=== PATIENT | female | born 1970 | race Hispanic/Latino ===

== ENCOUNTER 2018-03-10 22:03 | Inpatient (IN) | payer SELFPAY ==
[2018-03-10] MEDS ORDERED: NACL 0.9% 1000 ML 1,000 ML IV ONE (22:28)
[2018-03-10] MEDS ORDERED: ZOFRAN IV ONE (22:28)
[2018-03-10] MEDS ORDERED: DILAUDID IV ONE (22:28)
--- NOTE | 2018-03-10 22:30 | Emergency Department Report ---
ED Abdominal Pain HPI - General Chief Complaint: Abdominal Pain Stated Complaint: STOMACH ULCER PAIN Time Seen by Provider: 03/10/18 22:24 Source: patient, EMS Mode of arrival: Wheelchair Limitations: No Limitations - History of Present Illness Initial Comments: Patient is a 47-year-old female presents emergency room with complaints of abdominal pain, nausea vomiting, hematemesis. Patient states her symptoms all started 2-3 days ago. Patient states symptoms are worsening. Patient states she is vomiting bright red blood. Patient states abdominal pain is in the epigastric region and is nonradiating and is out of 10. He states the pain is better with rest and worse with vomiting and eating. She denies fever and chills. Patient denies chest pain shortness of breath. MD Complaint: abdominal pain -: Sudden Location: epigastric Radiation: none Migration to: no migration Severity: severe Severity scale (0 -10): 10 Quality: stabbing, burning Consistency: constant Improves With: rest Worsens With: eating, vomiting, movement Associated Symptoms: nausea, vomiting, hematemesis. denies: diarrhea, fever, chills, constipation, dysuria, hematochezia, melena, hematuria, anorexia, syncope - Related Data LMP (females 10-50): this week Home Medications Medication Instructions Recorded Confirmed Last Taken No Known Home Medications [No 03/11/18 03/11/18 Unknown Reported Home Medications] Allergies Allergy/AdvReac Type Severity Reaction Status Date / Time No Known Allergies Allergy Verified 03/10/18 22:14 ED Review of Systems ROS: Stated complaint: STOMACH ULCER PAIN Other details as noted in HPI Constitutional: denies: chills, fever Eyes: denies: eye pain, eye discharge, vision change ENT: denies: ear pain, throat pain Respiratory: denies: cough, shortness of breath, wheezing Cardiovascular: denies: chest pain, palpitations Endocrine: no symptoms reported Gastrointestinal: abdominal pain, nausea, vomiting, hematemesis. denies: diarrhea, constipation, melena, hematochezia Genitourinary: denies: urgency, dysuria, discharge Musculoskeletal: denies: back pain, joint swelling, arthralgia Skin: denies: rash, lesions Neurological: denies: headache, weakness, paresthesias Psychiatric: denies: anxiety, depression Hematological/Lymphatic: denies: easy bleeding, easy bruising ED Past Medical Hx - Past Medical History Previous Medical History?: Yes Additional medical history: ulcers - Surgical History Past Surgical History?: No - Family History Family history: no significant - Social History Smoking Status: Current Every Day Smoker Substance Use Type: None - Medications Home Medications: Home Medications Medication Instructions Recorded Confirmed Last Taken Type No Known Home Medications [No 03/11/18 03/11/18 Unknown History Reported Home Medications] ED Physical Exam - General Limitations: No Limitations General appearance: alert, in no apparent distress - Head Head exam: Present: atraumatic, normocephalic - Eye Eye exam: Present: normal appearance - ENT ENT exam: Present: mucous membranes moist - Neck Neck exam: Present: normal inspection - Respiratory Respiratory exam: Present: normal lung sounds bilaterally. Absent: respiratory distress - Cardiovascular Cardiovascular Exam: Present: regular rate, normal rhythm. Absent: systolic murmur, diastolic murmur, rubs, gallop - GI/Abdominal GI/Abdominal exam: Present: soft, tenderness (epigastric tenderness to palpation), normal bowel sounds - Extremities Exam Extremities exam: Present: normal inspection - Back Exam Back exam: Present: normal inspection - Neurological Exam Neurological exam: Present: alert, oriented X3 - Psychiatric Psychiatric exam: Present: normal affect, normal mood - Skin Skin exam: Present: warm, dry, intact, normal color. Absent: rash ED Course Vital Signs 03/10/18 03/10/18 03/10/18 22:14 23:44 23:45 Temperature 98.7 F Pulse Rate 130 H 113 H 113 H Respiratory 16 16 19 Rate Blood Pressure 110/77 171/112 O2 Sat by Pulse 100 100 99 Oximetry 03/11/18 03/11/18 03/11/18 00:00 00:16 00:30 Temperature Pulse Rate 108 H 113 H 118 H Respiratory 17 18 19 Rate Blood Pressure 171/112 171/115 O2 Sat by Pulse 100 99 99 Oximetry 03/11/18 03/11/18 03/11/18 00:46 01:00 01:16 Temperature Pulse Rate 114 H 117 H 114 H Respiratory 18 21 19 Rate Blood Pressure 171/115 170/102 170/102 O2 Sat by Pulse 99 98 99 Oximetry 03/11/18 03/11/18 03/11/18 01:46 02:16 02:38 Temperature Pulse Rate 117 H 109 H 108 H Respiratory 15 16 17 Rate Blood Pressure 170/102 140/97 160/99 O2 Sat by Pulse 96 98 Oximetry 03/11/18 03/11/18 05:16 05:30 Temperature Pulse Rate 113 H Respiratory 24 Rate Blood Pressure 168/102 152/102 O2 Sat by Pulse 97 94 Oximetry - Reevaluation(s) Reevaluation #1: Patient resting in bed and complaining of abdominal pain at a 10 out of 10. Patient will get another dose of Dilaudid. 03/11/18 01:19 Patient's findings consistent with early sepsis. Patient will be treated with antibiotics. Patient's UA is positive for UTI. Patient states her pain is improving. Patient's heart rate improving. 03/11/18 03:14 Discussed all results with patient. Patient agrees with plan of care and admi ssion. Patient admitted to the hospitalist service for further evaluation treatment. 03/11/18 04:19 - Consultations Consultation #1: GI consultation. Dr. Vasquez see patient in the morning. Dr. vasquez wants patient nothing by mouth 03/11/18 04:14 Consultation #2: Hospitalist consult for admission. Hospitalist to admit patient. 03/11/18 04:20 ED Medical Decision Making - Lab Data Result diagrams: 03/10/18 22:34 03/10/18 22:34 - EKG Data -: EKG Interpreted by Ri EKG shows normal: sinus rhythm, axis, intervals, QRS complexes, ST-T waves Rate: tachycardia - Radiology Data Radiology results: report reviewed FINAL REPORT PROCEDURE: CT ABDOMEN PELVIS W CON TECHNIQUE: Computerized axial tomography of the abdomen and pelvis was performed after the IV injection of iodinated nonionic contrast. HISTORY: Abdominal Pain COMPARISON: No prior studies are available for comparison. FINDINGS: Visualized lower thorax: No significant abnormality. Liver: Normal size and attenuation. Spleen: Normal size and attenuation. Gallbladder and biliary system: Normal. Pancreas: Normal. Adrenals: Normal. Kidneys: There are tiny kidney stones. There is heterogeneous enhancement of the kidneys suggesting possible scarring from prior pyelonephritis. There is no discrete mass. There is no hydronephrosis.. GI tract: The stomach is distended. There is no obstructing mass. Gastroparesis not excluded. The small bowel and colon are unremarkable. The appendix is normal.. Lymph nodes and mesentery: Normal. Vasculature: Normal. Bladder: Normal. Reproductive organs: There are uterine fibroids.. Peritoneum: There is no ascites or free air, abscess or adenopathy.. Musculoskeletal structures: There is grade 1 anterior spondylolisthesis of L5 over S1 with significant loss of disc height. There is bilateral spondylolysis. Other: None. IMPRESSION: There are tiny kidney stones. There is heterogeneous enhancement of the kidneys suggesting possible scarring from prior pyelonephritis. There is no discrete mass. There is no hydronephrosis.. The stomach is distended. There is no obstructing mass. Gastroparesis not excluded. The small bowel and colon are unremarkable. The appendix is normal.. There are uterine fibroids.. There is no ascites or free air, abscess or adenopathy.. There is grade 1 anterior spondylolisthesis of L5 over S1 with significant loss of disc height. There is bilateral spondylolysis. Transcribed By: CO Dictated By: OH BOWSER MD Electronically Authenticated By: OH BOWSER MD Signed Date/Time: 03/11/18 0401 - Medical Decision Making Patient is a 47-year-old female presents emergency room with complaints of vomiting blood and abdominal pain. Patient found to have gastroparesis on CT. Patient has a history of pyelonephritis but no hydronephrosis noted on CT the patient has a UTI. Patient is septic. Patient had elevated lactic acid. Patient has an elevated WBCs. - Differential Diagnosis abdominal pain. Gastritis. Hematochezia. GI bleed. Peptic ulcer disease Critical Care Time: Yes Critical care attestation.: If time is entered above; I have spent that time in minutes in the direct care of this critically ill patient, excluding procedure time. Critical Care Time: 80 minutes ED Disposition Clinical Impression: Lactic acidosis, Epigastric abdominal pain, Upper GI bleeding, Hematochezia, Gastroparesis Sepsis Qualifiers: Sepsis type: sepsis due to unspecified organism Qualified Code(s): A41.9 - Sepsis, unspecified organism Anemia Qualifiers: Anemia type: unspecified type Qualified Code(s): D64.9 - Anemia, unspecified Nausea & vomiting Qualifiers: Vomiting type: unspecified Vomiting Intractability: non-intractable Qualified Code(s): R11.2 - Nausea with vomiting, unspecified UTI (urinary tract infection) Qualifiers: Urinary tract infection type: acute cystitis Hematuria presence: with hematuria Qualified Code(s): N30.01 - Acute cystitis with hematuria Disposition: DC-09 OP ADMIT IP TO THIS HOSP Is pt being admited?: Yes Does the pt Need Aspirin: No Condition: Critical Time of Disposition: 04:21
[2018-03-10 22:58] LABS: Hematocrit 32.5 % (30.3-42.9); Hemoglobin 9.9 gm/dl (10.1-14.3); Mean Corpuscular HGB Conc 30 % (30-34); Platelet Count 542 K/mm3 (140-440); Red Blood Count 5.36 M/mm3 (3.65-5.03)
[2018-03-10 23:00] LABS: Mean Corpuscular Volume 61 fl (79-97); Red Cell Distribution Width 20.2 % (13.2-15.2)
[2018-03-10 23:17] LABS: Alanine Aminotransferase 8 units/L (7-56); Albumin 4.6 g/dL (3.9-5); BUN/Creatinine Ratio 20; Bilirubin,Direct < 0.2 mg/dL (0-0.2); Blood Urea Nitrogen 20 mg/dL (7-17); Calcium 11.2 mg/dL (8.4-10.2); Hemolysis Index 3
[2018-03-11] MEDS ORDERED: DILAUDID IV ONE ×2 (01:14→05:25)
[2018-03-11 01:40] LABS: Band Neutrophils # (Manual) 1.1 K/mm3; Basophils % (Manual) 0 % (0.0-1.8); Eosinophils % (Manual) 0 % (0.0-4.3); Total Cells Counted 100
[2018-03-11 01:41] LABS: Anisocytosis 1+; Hypochromasia 2+; Platelet Estimate Appears Increased
[2018-03-11] MEDS ORDERED: NACL 0.9% 1000 ML IV ONE (01:46)
[2018-03-11 03:04] LABS: Bilirubin,Urine NEG (Negative); Blood,Urine LG (Negative); Color,Urine Red (Yellow); Hyaline Casts,Urine 149 /LPF; Mucus,Urine 3+ /HPF; Urobilinogen,Urine < 2.0 mg/dL (<2.0)
[2018-03-11 03:06] LABS: RBC,Urine > 182.0 /HPF (0.0-6.0)
[2018-03-11] MEDS ORDERED: ZOSYN/NS 4.5GM/100ML 4.5 GM/100 ML VIAL IV ONE (03:13)
--- NOTE | 2018-03-11 04:01 | Cat Scan Report ---
FINAL REPORT PROCEDURE: CT ABDOMEN PELVIS W CON TECHNIQUE: Computerized axial tomography of the abdomen and pelvis was performed after the IV inject ion of iodinated nonionic contrast. HISTORY: Abdominal Pain COMPARISON: No prior studies are available for comparison. FINDINGS: Visualized lower thorax: No significant abnormality. Liver: Normal size and attenuation. Spleen: Normal size and attenuation. Gallbladder and biliary system: Normal. Pancreas: Normal. Adrenals: Normal. Kidneys: There are tiny kidney stones. There is heterogeneous enhancement of the kidneys suggesting p ossible scarring from prior pyelonephritis. There is no discrete mass. There is no hydronephrosis.. GI tract: The stomach is distended. There is no obstructing mass. Gastroparesis not excluded. The sma ll bowel and colon are unremarkable. The appendix is normal.. Lymph nodes and mesentery: Normal. Vasculature: Normal. Bladder: Normal. Reproductive organs: There are uterine fibroids.. Peritoneum: There is no ascites or free air, abscess or adenopathy.. Musculoskeletal structures: There is grade 1 anterior spondylolisthesis of L5 over S1 with significan t loss of disc height. There is bilateral spondylolysis. Other: None. IMPRESSION: There are tiny kidney stones. There is heterogeneous enhancement of the kidneys suggesting possible s carring from prior pyelonephritis. There is no discrete mass. There is no hydronephrosis.. The stomach is distended. There is no obstructing mass. Gastroparesis not excluded. The small bowel a nd colon are unremarkable. The appendix is normal.. There are uterine fibroids.. There is no ascites or free air, abscess or adenopathy.. There is grade 1 anterior spondylolisthesis of L5 over S1 with significant loss of disc height. There is bilateral spondylolysis.
[2018-03-11] MEDS ORDERED: DILAUDID ONE (05:29)
[2018-03-11] MEDS ORDERED: PROTONIX IV ONE (05:43)
[2018-03-11] MEDS ORDERED: MORPHINE IV PRN (05:44)
[2018-03-11] MEDS ORDERED: SODIUM CHLORIDE FLUSH SYRINGE 10 ML IV PRN (05:44)
[2018-03-11] MEDS ORDERED: REGLAN IV PRN (05:44)
[2018-03-11] MEDS ORDERED: TYLENOL PO PRN (05:44)
[2018-03-11] MEDS ORDERED: ZOFRAN IV PRN (05:44)
[2018-03-11] MEDS ORDERED: APRESOLINE IV PRN (05:50)
[2018-03-11] MEDS ORDERED: PROTONIX 80 MG in NACL 0.9% 100 ML IV SCH (06:00)
[2018-03-11] MEDS ORDERED: NACL 0.45% 1000 ML 1,000 ML IV SCH (06:00)
[2018-03-11 06:01] LABS: Hemoglobin 8.4 gm/dl (10.1-14.3)
--- NOTE | 2018-03-11 06:05 | History and Physical Report ---
History of Present Illness Date of examination: 03/11/18 History of present illness: 70-year-old man a history of gastric ulcer times emergency room complaining of epigastric pain that lasts for a while, sharp, intensity 7/10, nonradiating, cannot identify definite relieving factors. Patient states that she has been na useous and vomiting over the last 4 days, however in the last 2 days she has coffee-ground emesis. She takes 24-30 ibuprofen a day for back pain, times several months. Patient took Zantac, Tums, Pepto-Bismol without any significant improvement Review of systems Constitutional: no weight loss, chills, fever Ears, eyes, nose, mouth and throat: no nasal congestion, no nasal discharge, no sinus pressure, no vision change, no red eye. Neck: No neck pain or rigidity. Cardiovascular: no palpitations, chest pain Respiratory: no cough, shortness of breath Gastrointestinal: no hematochezia, abdominal pain Genitourinary : no frequency , no hematuria Musculoskeletal: no joint swelling or muscle ache Integumentary: no rash, no pruritis Neurological: no parathesias, no focal weakness Endocrine: no cold or heat intolerance, no polyuria or polydipsia Hematologic/Lymphatic: no easy bruising, no easy bleeding, no gland swelling Allergic/Immunologic: no urticaria, no angioedema. PAST MEDICAL HISTORY: gastric ulce PAST SURGICAL HISTORY: Surgery for gastric ulcer SOCIAL HISTORY: Denies alcohol, drugs, smoke a pack a day FAMILY HISTORY: Hypertension Medications and Allergies Allergies Allergy/AdvReac Type Severity Reaction Status Date / Time No Known Allergies Allergy Verified 03/10/18 22:14 Home Medications Medication Instructions Recorded Confirmed Last Taken Type No Known Home Medications [No 03/11/18 03/11/18 Unknown History Reported Home Medications] Active Meds: Active Medications Acetaminophen (Tylenol) 650 mg PO Q4H PRN PRN Reason: Pain MILD(1-3)/Fever >100.5/BEJARANO Hydralazine HCl (Apresoline) 5 mg IV Q6H PRN PRN Reason: Hypertension Pantoprazole Sodium 80 mg/ (Sodium Chloride) 100 mls @ 10 mls/hr IV DIRECT LIBAN Sodium Chloride (Nacl 0.45% 1000 Ml) 1,000 mls @ 125 mls/hr IV DIRECT LIBAN Piperacillin Sod/Tazobactam Sod (Zosyn/Ns 4.5gm/100ml) 4.5 gm in 100 mls @ 200 mls/hr IV Q8HR LIBAN; Protocol Metoclopramide HCl (Reglan) 10 mg IV Q6H PRN PRN Reason: Nausea And Vomiting Morphine Sulfate (Morphine) 2 mg IV Q4H PRN PRN Reason: Pain, Moderate (4-6) Ondansetron HCl (Zofran) 4 mg IV Q4H PRN PRN Reason: Nausea And Vomiting Sodium Chloride (Sodium Chloride Flush Syringe 10 Ml) 10 ml IV BID LIBAN Sodium Chloride (Sodium Chloride Flush Syringe 10 Ml) 10 ml IV PRN PRN PRN Reason: LINE FLUSH Exam - Physical Exam Narrative exam: General Apperance: The patient lying in bed, breathing comfortable HEENT: Normocephalic, atraumatic. Pupils equally round and reactive to light, EOMI, no sclericterus or JVD or thyromegaly or nodule. , no carotid bruit, mucous membranes moist, no exudate or erythema Heart: S1-S2, regular is rhythm Lungs: Clear to auscultation bilaterally, breathing comfortable Abdomen: Positive bowel sounds, soft, nontender, nondistended, no organomegaly Extremities: No edema cyanosis clubbing Skin: no rash, nodule, warm and dry Neuro: cranial nerves 2-12 intact, speech is fluent, motor/sensory intact - Constitutional Vitals: Temp Pulse Resp BP Pulse Ox 98.7 F 113 H 24 152/102 94 03/10/18 22:14 03/11/18 05:30 03/11/18 05:30 03/11/18 05:30 03/11/18 05:30 Results - Labs CBC & Chem 7: 03/11/18 05:54 03/10/18 22:34 Labs: Abnormal lab results 03/10/18 03/10/18 03/10/18 Range/Units 02:37 22:34 22:34 WBC 21.5 H (4.5-11.0) K/mm3 RBC 5.36 H (3.65-5.03) M/mm3 Hgb 9.9 L (10.1-14.3) gm/dl Hct (30.3-42.9) % MCV 61 L (79-97) fl MCH 18 L (28-32) pg RDW 20.2 H (13.2-15.2) % Plt Count 542 H (140-440) K/mm3 Seg Neuts % (Manual) 80.0 H (40.0-70.0) % Lymphocytes % (Manual) 5.0 L (13.4-35.0) % Monocytes % (Manual) 10.0 H (0.0-7.3) % Seg Neutrophils # Man 17.2 H (1.8-7.7) K/mm3 Lymphocytes # (Manual) 1.1 L (1.2-5.4) K/mm3 Monocytes # (Manual) 2.2 H (0.0-0.8) K/mm3 Potassium 3.3 L (3.6-5.0) mmol/L Chloride 89.4 L (98-107) mmol/L Carbon Dioxide 33 H (22-30) mmol/L BUN 20 H (7-17) mg/dL Glucose 121 H (65-100) mg/dL Lactic Acid (0.7-2.0) mmol/L Calcium 11.2 H (8.4-10.2) mg/dL Urine WBC (Auto) 69.0 H (0.0-6.0) /HPF 03/10/18 03/11/18 Range/Units 22:34 05:54 WBC (4.5-11.0) K/mm3 RBC (3.65-5.03) M/mm3 Hgb 8.4 L (10.1-14.3) gm/dl Hct 28.0 L (30.3-42.9) % MCV (79-97) fl MCH (28-32) pg RDW (13.2-15.2) % Plt Count (140-440) K/mm3 Seg Neuts % (Manual) (40.0-70.0) % Lymphocytes % (Manual) (13.4-35.0) % Monocytes % (Manual) (0.0-7.3) % Seg Neutrophils # Man (1.8-7.7) K/mm3 Lymphocytes # (Manual) (1.2-5.4) K/mm3 Monocytes # (Manual) (0.0-0.8) K/mm3 Potassium (3.6-5.0) mmol/L Chloride (98-107) mmol/L Carbon Dioxide (22-30) mmol/L BUN (7-17) mg/dL Glucose (65-100) mg/dL Lactic Acid 2.30 H* (0.7-2.0) mmol/L Calcium (8.4-10.2) mg/dL Urine WBC (Auto) (0.0-6.0) /HPF - Imaging and Cardiology CT scan - abdomen: report reviewed CT scan - pelvis: report reviewed Assessment and Plan Assessment Upper GI bleed secondary to gastric ulcer Sepsis Urinary tract infection Hypertension Plan Admit to medicine Start protoniX Drip, IV fluid Check serial hemoglobin Consult GI, start IV Zosyn, follow cultures IV morphine, DVT prophylaxis Significant red cell and urine secondary to menstrual flow IV hydralazine as needed for blood pressure control
[2018-03-11] MEDS: ZOSYN/NS 4.5GM/100ML 4.5 GM/100 ML VIAL IV SCH ×2 (06:09→18:19)
[2018-03-11 06:50] LABS: INR 1.12 (0.87-1.13)
[2018-03-11 06:51] LABS: Partial Thromboplastin Time 27.7 Sec. (24.2-36.6)
--- NOTE | 2018-03-11 07:09 | XRay Report ---
FINAL REPORT PROCEDURE: XR CHEST 1V AP TECHNIQUE: Chest radiograph anteroposterior view. CPT 45365 HISTORY: EVAL FOR PNEUMONIA COMPARISON: No prior studies are available for comparison. FINDINGS: Heart: Normal. Mediastinum/Vessels: Normal. Lungs/Pleural space: Normal. Bony thorax: No acute osseous abnormality. Life support devices: None. IMPRESSION: No acute cardiopulmonary abnormality.
[2018-03-11 08:00] LABS: Basophils # (Auto) 0.1 K/mm3 (0.0-0.1); Basophils % (Auto) 0.4 % (0.0-1.8); Eosinophils % (Auto) 0.3 % (0.0-4.3); Hematocrit 27.9 % (30.3-42.9); Hemoglobin 8.4 gm/dl (10.1-14.3); Lymphocytes # (Auto) 1.1 K/mm3 (1.2-5.4); Lymphocytes % (Auto) 6.2 % (13.4-35.0); Mean Corpuscular HGB Conc 30 % (30-34); Monocytes % (Auto) 5.6 % (0.0-7.3); Platelet Count 422 K/mm3 (140-440); Red Blood Count 4.53 M/mm3 (3.65-5.03); Red Cell Distribution Width 19.9 % (13.2-15.2)
[2018-03-11 08:16] LABS: Mean Corpuscular Volume 62 fl (79-97)
[2018-03-11] MEDS ORDERED: DIPRIVAN 10 MG/ML IV ONE ×2 (08:43→08:44)
[2018-03-11] MEDS ORDERED: XYLOCAINE 1% 20 mL ONE (08:44)
[2018-03-11] MEDS ORDERED: WATER FOR IRRIG STERILE IR ONE (08:48)
--- NOTE | 2018-03-11 08:56 | Gastroenterology Consultation ---
History of Present Illness - Reason for Consult Consult date: 03/11/18 Epigastric Pain Requesting physician: TERRIE CHICAS - History of Present Illness The patient is a 47 yo female with a hx of PUD (requiring surgery) who came to the ER for epigastric pain and CGE. She abuses multiple NSAIDs daily and smokes. She has had no melena, but is mildly anemic. There is no family hx of gastric cancer. The patient has not lost any abnromal amount of weight, and has had no other bowel surgery. Her BMs are generally regular. Past History Past Medical History: other (Ulcers) Past Surgical History: Other (gastric resection (PUD)) Social history: smoking. denies: alcohol abuse Family history: no significant family history Medications and Allergies Allergies Allergy/AdvReac Type Severity Reaction Status Date / Time No Known Allergies Allergy Verified 03/10/18 22:14 Home Medications Medication Instructions Recorded Confirmed Last Taken Type No Known Home Medications [No 03/11/18 03/11/18 Unknown History Reported Home Medications] Active Meds: Active Medications Acetaminophen (Tylenol) 650 mg PO Q4H PRN PRN Reason: Pain MILD(1-3)/Fever >100.5/BEJARANO Hydralazine HCl (Apresoline) 5 mg IV Q6H PRN PRN Reason: Hypertension Pantoprazole Sodium 80 mg/ (Sodium Chloride) 100 mls @ 10 mls/hr IV DIRECT LIBAN Last Admin: 03/11/18 06:38 Dose: 8 mg/hr, 10 mls/hr Documented by: Sodium Chloride (Nacl 0.45% 1000 Ml) 1,000 mls @ 125 mls/hr IV DIRECT LIBAN Piperacillin Sod/Tazobactam Sod (Zosyn/Ns 4.5gm/100ml) 4.5 gm in 100 mls @ 200 mls/hr IV Q8HR LIBAN; Protocol Last Admin: 03/11/18 06:09 Dose: 200 mls/hr Documented by: Sodium Chloride (Nacl 0.9% 1000 Ml) 1,000 mls @ 50 mls/hr IV DIRECT LIBAN Metoclopramide HCl (Reglan) 10 mg IV Q6H PRN PRN Reason: Nausea And Vomiting Morphine Sulfate (Morphine) 2 mg IV Q4H PRN PRN Reason: Pain, Moderate (4-6) Ondansetron HCl (Zofran) 4 mg IV Q4H PRN PRN Reason: Nausea And Vomiting Sodium Chloride (Sodium Chloride Flush Syringe 10 Ml) 10 ml IV BID LIBAN Sodium Chloride (Sodium Chloride Flush Syringe 10 Ml) 10 ml IV PRN PRN PRN Reason: LINE FLUSH I HAVE REVIEWED AND RECONCILED MEDICATIONS Review of Systems - Review of Systems All systems: negative (except as noted in the HPI) Exam - Constitutional Vital Signs: Temp Pulse Resp BP Pulse Ox 98.7 F 105 H 14 160/97 94 03/10/18 22:14 03/11/18 06:00 03/11/18 06:00 03/11/18 06:00 03/11/18 06:00 General appearance: no acute distress - EENT Eyes: PERRL, EOM intact ENT: hearing intact, clear oral mucosa - Neck Neck: supple, normal ROM - Respiratory Respiratory effort: normal Respiratory: bilateral: CTA - Cardiovascular Rhythm: regular Heart Sounds: Present: S1 & S2 Extremities: no ischemia, No edema - Gastrointestinal General gastrointestinal: Present: soft, tender (epigastric but mild/no guard), non-distended - Integumentary Integumentary: Present: clear, warm, dry - Neurologic Neurological: alert and oriented x3 - Labs CBC & Chem 7: 03/11/18 07:43 03/10/18 22:34 Lab Results: Laboratory Results - last 24 hr 03/10/18 03/10/18 03/10/18 02:37 22:34 22:34 WBC 21.5 H RBC 5.36 H Hgb 9.9 L Hct 32.5 MCV 61 L MCH 18 L MCHC 30 RDW 20.2 H Plt Count 542 H Lymph % (Auto) Coke % (Auto) Eos % (Auto) Baso % (Auto) Lymph # Coke # Eos # Baso # Add Manual Diff Complete Total Counted 100 Seg Neutrophils % Seg Neuts % (Manual) 80.0 H Band Neutrophils % 5.0 Lymphocytes % (Manual) 5.0 L Reactive Lymphs % (Man) 0 Monocytes % (Manual) 10.0 H Eosinophils % (Manual) 0 Basophils % (Manual) 0 Metamyelocytes % 0 Myelocytes % 0 Promyelocytes % 0 Blast Cells % 0 Nucleated RBC % Not Reportable Seg Neutrophils # Seg Neutrophils # Man 17.2 H Band Neutrophils # 1.1 Lymphocytes # (Manual) 1.1 L Abs React Lymphs (Man) 0.0 Monocytes # (Manual) 2.2 H Eosinophils # (Manual) 0.0 Basophils # (Manual) 0.0 Metamyelocytes # 0.0 Myelocytes # 0.0 Promyelocytes # 0.0 Blast Cells # 0.0 WBC Morphology Not Reportable Hypersegmented Neuts Not Reportable Hyposegmented Neuts Not Reportable Hypogranular Neuts Not Reportable Smudge Cells Not Reportable Toxic Granulation Not Reportable Toxic Vacuolation Not Reportable Dohle Bodies Not Reportable Pelger-Huet Anomaly Not Reportable Chase Rods Not Reportable Platelet Estimate Appears increased Clumped Platelets Not Reportable Plt Clumps, EDTA Not Reportable Large Platelets Not Reportable Giant Platelets Not Reportable Platelet Satelliting Not Reportable Plt Morphology Comment Not Reportable RBC Morphology Not Reportable Dimorphic RBCs Not Reportable Polychromasia Not Reportable Hypochromasia 2+ Poikilocytosis Not Reportable Anisocytosis 1+ Microcytosis 2+ Macrocytosis Not Reportable Spherocytes Not Reportable Pappenheimer Bodies Not Reportable Sickle Cells Not Reportable Target Cells Not Reportable Tear Drop Cells Not Reportable Ovalocytes Not Reportable Helmet Cells Not Reportable [place] Bodies Not Reportable [place] Rings Not Reportable [place] Cells Not Reportable Bite Cells Not Reportable Crenated Cell Not Reportable Elliptocytes Not Reportable Acanthocytes (Spur) Not Reportable Rouleaux Not Reportable Hemoglobin C Crystals Not Reportable Schistocytes Not Reportable Malaria parasites Not Reportable Gabe Bodies Not Reportable Hem Pathologist Commnt No PT INR APTT Sodium 139 Potassium 3.3 L Chloride 89.4 L Carbon Dioxide 33 H Anion Gap 20 BUN 20 H Creatinine 1.0 Estimated GFR 59 BUN/Creatinine Ratio 20 Glucose 121 H Lactic Acid Calcium 11.2 H Total Bilirubin 0.30 Direct Bilirubin < 0.2 Indirect Bilirubin 0.1 AST 12 ALT 8 Alkaline Phosphatase 87 Total Protein 7.7 Albumin 4.6 Albumin/Globulin Ratio 1.5 Lipase 30 HCG, Qual Urine Color Red Urine Turbidity Cloudy Urine pH 7.0 Ur Specific Caret 1.016 Urine Protein 100 mg/dl Urine Glucose (UA) 50 Urine Ketones Neg Urine Blood Lg Urine Nitrite Neg Urine Bilirubin Neg Urine Urobilinogen < 2.0 Ur Leukocyte Esterase Sm Urine WBC (Auto) 69.0 H Urine RBC (Auto) > 182.0 U Epithel Cells (Auto) 13.0 Hyaline Casts 149 Urine Mucus 3+ Blood Type Antibody Screen 03/10/18 03/10/18 03/10/18 22:34 22:34 23:56 WBC RBC Hgb Hct MCV MCH MCHC RDW Plt Count Lymph % (Auto) Coke % (Auto) Eos % (Auto) Baso % (Auto) Lymph # Coke # Eos # Baso # Add Manual Diff Total Counted Seg Neutrophils % Seg Neuts % (Manual) Band Neutrophils % Lymphocytes % (Manual) Reactive Lymphs % (Man) Monocytes % (Manual) Eosinophils % (Manual) Basophils % (Manual) Metamyelocytes % Myelocytes % Promyelocytes % Blast Cells % Nucleated RBC % Seg Neutrophils # Seg Neutrophils # Man Band Neutrophils # Lymphocytes # (Manual) Abs React Lymphs (Man) Monocytes # (Manual) Eosinophils # (Manual) Basophils # (Manual) Metamyelocytes # Myelocytes # Promyelocytes # Blast Cells # WBC Morphology Hypersegmented Neuts Hyposegmented Neuts Hypogranular Neuts Smudge Cells Toxic Granulation Toxic Vacuolation Dohle Bodies Pelger-Huet Anomaly Chase Rods Platelet Estimate Clumped Platelets Plt Clumps, EDTA Large Platelets Giant Platelets Platelet Satelliting Plt Morphology Comment RBC Morphology Dimorphic RBCs Polychromasia Hypochromasia Poikilocytosis Anisocytosis Microcytosis Macrocytosis Spherocytes Pappenheimer Bodies Sickle Cells Target Cells Tear Drop Cells Ovalocytes Helmet Cells Kenny-[place] Bodies [place] Rings Stephanie Cells Bite Cells Crenated Cell Elliptocytes Acanthocytes (Spur) Rouleaux Hemoglobin C Crystals Schistocytes Malaria parasites Gabe Bodies Hem Pathologist Commnt PT INR APTT Sodium Potassium Chloride Carbon Dioxide Anion Gap BUN Creatinine Estimated GFR BUN/Creatinine Ratio Glucose Lactic Acid 2.30 H* 1.70 Calcium Total Bilirubin Direct Bilirubin Indirect Bilirubin AST ALT Alkaline Phosphatase Total Protein Albumin Albumin/Globulin Ratio Lipase HCG, Qual Negative Urine Color Urine Turbidity Urine pH Ur Specific Caret Urine Protein Urine Glucose (UA) Urine Ketones Urine Blood Urine Nitrite Urine Bilirubin Urine Urobilinogen Ur Leukocyte Esterase Urine WBC (Auto) Urine RBC (Auto) U Epithel Cells (Auto) Hyaline Casts Urine Mucus Blood Type Antibody Screen 03/11/18 03/11/18 03/11/18 01:22 05:54 06:12 WBC RBC Hgb 8.4 L Hct 28.0 L MCV MCH MCHC RDW Plt Count Lymph % (Auto) Coke % (Auto) Eos % (Auto) Baso % (Auto) Lymph # Coke # Eos # Baso # Add Manual Diff Total Counted Seg Neutrophils % Seg Neuts % (Manual) Band Neutrophils % Lymphocytes % (Manual) Reactive Lymphs % (Man) Monocytes % (Manual) Eosinophils % (Manual) Basophils % (Manual) Metamyelocytes % Myelocytes % Promyelocytes % Blast Cells % Nucleated RBC % Seg Neutrophils # Seg Neutrophils # Man Band Neutrophils # Lymphocytes # (Manual) Abs React Lymphs (Man) Monocytes # (Manual) Eosinophils # (Manual) Basophils # (Manual) Metamyelocytes # Myelocytes # Promyelocytes # Blast Cells # WBC Morphology Hypersegmented Neuts Hyposegmented Neuts Hypogranular Neuts Smudge Cells Toxic Granulation Toxic Vacuolation Dohle Bodies Pelger-Huet Anomaly Chase Rods Platelet Estimate Clumped Platelets Plt Clumps, EDTA Large Platelets Giant Platelets Platelet Satelliting Plt Morphology Comment RBC Morphology Dimorphic RBCs Polychromasia Hypochromasia Poikilocytosis Anisocytosis Microcytosis Macrocytosis Spherocytes Pappenheimer Bodies Sickle Cells Target Cells Tear Drop Cells Ovalocytes Helmet Cells Kenny-[place] Bodies [place] Rings Stephanie Cells Bite Cells Crenated Cell Elliptocytes Acanthocytes (Spur) Rouleaux Hemoglobin C Crystals Schistocytes Malaria parasites Gabe Bodies Hem Pathologist Commnt PT 14.8 INR 1.12 APTT 27.7 Sodium Potassium Chloride Carbon Dioxide Anion Gap BUN Creatinine Estimated GFR BUN/Creatinine Ratio Glucose Lactic Acid Calcium Total Bilirubin Direct Bilirubin Indirect Bilirubin AST ALT Alkaline Phosphatase Total Protein Albumin Albumin/Globulin Ratio Lipase HCG, Qual Urine Color Urine Turbidity Urine pH Ur Specific Caret Urine Protein Urine Glucose (UA) Urine Ketones Urine Blood Urine Nitrite Urine Bilirubin Urine Urobilinogen Ur Leukocyte Esterase Urine WBC (Auto) Urine RBC (Auto) U Epithel Cells (Auto) Hyaline Casts Urine Mucus Blood Type A POSITIVE Antibody Screen Negative 03/11/18 07:43 WBC 17.7 H RBC 4.53 Hgb 8.4 L Hct 27.9 L MCV 62 L MCH 19 L MCHC 30 RDW 19.9 H Plt Count 422 Lymph % (Auto) 6.2 L Coke % (Auto) 5.6 Eos % (Auto) 0.3 Baso % (Auto) 0.4 Lymph # 1.1 L Coke # 1.0 H Eos # 0.0 Baso # 0.1 Add Manual Diff Total Counted Seg Neutrophils % 87.5 H Seg Neuts % (Manual) Band Neutrophils % Lymphocytes % (Manual) Reactive Lymphs % (Man) Monocytes % (Manual) Eosinophils % (Manual) Basophils % (Manual) Metamyelocytes % Myelocytes % Promyelocytes % Blast Cells % Nucleated RBC % Seg Neutrophils # 15.5 H Seg Neutrophils # Man Band Neutrophils # Lymphocytes # (Manual) Abs React Lymphs (Man) Monocytes # (Manual) Eosinophils # (Manual) Basophils # (Manual) Metamyelocytes # Myelocytes # Promyelocytes # Blast Cells # WBC Morphology Hypersegmented Neuts Hyposegmented Neuts Hypogranular Neuts Smudge Cells Toxic Granulation Toxic Vacuolation Dohle Bodies Pelger-Huet Anomaly Chase Rods Platelet Estimate Clumped Platelets Plt Clumps, EDTA Large Platelets Giant Platelets Platelet Satelliting Plt Morphology Comment RBC Morphology Dimorphic RBCs Polychromasia Hypochromasia Poikilocytosis Anisocytosis Microcytosis Macrocytosis Spherocytes Pappenheimer Bodies Sickle Cells Target Cells Tear Drop Cells Ovalocytes Helmet Cells Kenny-[place] Bodies [place] Rings Stephanie Cells Bite Cells Crenated Cell Elliptocytes Acanthocytes (Spur) Rouleaux Hemoglobin C Crystals Schistocytes Malaria parasites Gabe Bodies Hem Pathologist Commnt PT INR APTT Sodium Potassium Chloride Carbon Dioxide Anion Gap BUN Creatinine Estimated GFR BUN/Creatinine Ratio Glucose Lactic Acid Calcium Total Bilirubin Direct Bilirubin Indirect Bilirubin AST ALT Alkaline Phosphatase Total Protein Albumin Albumin/Globulin Ratio Lipase HCG, Qual Urine Color Urine Turbidity Urine pH Ur Specific Caret Urine Protein Urine Glucose (UA) Urine Ketones Urine Blood Urine Nitrite Urine Bilirubin Urine Urobilinogen Ur Leukocyte Esterase Urine WBC (Auto) Urine RBC (Auto) U Epithel Cells (Auto) Hyaline Casts Urine Mucus Blood Type Antibody Screen Assessment and Plan - Patient Problems (1) Anemia Current Visit: Yes Status: Acute Qualifiers: Anemia type: unspecified type Qualified Code(s): D64.9 - Anemia, unspecified (2) Epigastric abdominal pain Current Visit: Yes Status: Acute Plan to address problem: - Given anemia, with NSAID/tobacco abuse, patient likely to have recurrent PUD. - Will make NPO, and put on protonix. - EGD to further evaluate.
[2018-03-11] MEDS ORDERED: NACL 0.9% 1000 ML 1,000 ML IV SCH (09:00)
--- NOTE | 2018-03-11 09:24 | Post Operative Note ---
Pre-op diagnosis: Hematemesis Post-op diagnosis: other (Ulcer) Findings: 1. Deformed lumen, with evidence of prior surgery in antrum 2. Large 2cm cratered ulcer in pylorus/duodenal bulb area -Distal lumen could be visualized, but endoscope (8mm) could not pass through strictured lumen in that area -Moderate amount (500ml) of fluid in stomach, consistent with partial gastric outlet obstruction 3. Moderate antral gastritis (cold bx) 4. LA Grade B erosive esophagitis Procedure: EGD with cold biopsy Anesthesia: MAC Surgeon: PEG STREETER Estimated blood loss: minimal Pathology: list (1. Gastric antrum) Condition: stable Disposition: floor (Recs: 1. If patient bleeds severely, ulcer will not be able to be treated endoscopically/will require Interventional Rads (or surgery). 2. NPO except sips of clears. 3. BID PPI and carafate x 3 days. 4. Repeat EGD on Wednesday to dilate gastric outlet area. 5. Patient should discontinue NSAIDs and smoking.)
--- NOTE | 2018-03-11 09:27 | Anesthesia Day of Surgery ---
Anesthesia Day of Surgery - Day of Surgery Patient Examined: Yes Patient H&P Reviewed: Yes Patient is NPO: Yes
--- NOTE | 2018-03-11 09:27 | Anesthesia Consultation ---
Anesthesia Consult and Med Hx Date of service: 03/11/18 - Airway Anesthetic Teeth Evaluation: Poor, Chipped (missing teeth) ROM Head & Neck: Adequate Mental/Hyoid Distance: Adequate Mallampati Class: Class II Intubation Access Assessment: Probably Good - Pre-Operative Health Status ASA Pre-Surgery Classification: ASA2 Proposed Anesthetic Plan: MAC - Pulmonary Hx Smoking: Yes - Cardiovascular System Hx Hypertension: No Hx Heart Attack/AMI: No - Central Nervous System Hx Back Pain: Yes - Gastrointestinal Hx Ulcer: Yes - Other Systems Hx Alcohol Use: No
--- NOTE | 2018-03-11 09:28 | Post Anesthesia Evaluation ---
- Post Anesthesia Evaluation Patient Participated: Yes Airway Patent: Yes Stable Respiratory Function: Yes Nausea/Vomiting: No Temp > 96.8F: Yes Pain Manageable: Yes Adequeate Hydration: Yes Anesthesia Complications: No Block Receding Appropriately: Not Applicable Patient on Ventilator: No
--- NOTE | 2018-03-11 09:43 | Operative Report ---
PROCEDURE PERFORMED: Esophagogastroduodenoscopy with cold biopsy. PREOPERATIVE DIAGNOSES: History of peptic ulcer disease and hematemesis. POSTOPERATIVE DIAGNOSES: Partial gastric outlet obstruction, peptic ulcer disease, esophagitis and gastritis. ENDOSCOPIST: Hugh Sevilla MD INSTRUMENT: [employer] video endoscope. MEDICATIONS: MAC anesthesia by Anesthesia Services. COMPLICATIONS: No apparent complications. ESTIMATED BLOOD LOSS: Minimal. SPECIMENS: Gastric antrum. IMPLANTS: None. ASSISTANTS: None. CONDITION AT COMPLETION: Stable. TECHNIQUE: The patient was informed of the risks and benefits of the procedure. She signed the informed consent to proceed. She was placed in left lateral decubitus position. The above sedative medications were given. Her vital signs remained stable throughout the procedure. The instrument was advanced from the mouth to the duodenal bulb region. At that point, a strictured area with an ulcer was encountered and the endoscope could not be advanced any further. The bowel was insufflated and the endoscope was slowly withdrawn. FINDINGS: 1. Deformed lumen in the distal stomach with evidence of a prior surgery in the antrum/duodenal bulb area; I would suspect a Mikal patch versus Billroth 1/distal antrectomy. 2. Moderate amount, 500 mL of fluid in the stomach consistent with partial gastric outlet obstruction, suctioned through the endoscope. 3. Large 2 cm cratered ulcer in the pylorus/duodenal bulb area. a. The distal lumen could be visualized with the endoscope (8 mm), could not pass through the strictured lumen into the distal bowel. b. Due to the active and large ulcer, we chose not to dilate the stricture at the present time. c. Moderate antral gastritis, status post cold biopsy to rule out H. pylori. 5. LA grade B erosive esophagitis. RECOMMENDATIONS: 1. If the patient bleeds significantly, the ulcer would not be able to be treated endoscopically; will require either Interventional Radiology or as a last resort General Surgery. 2. Nothing by mouth except for sips of clears. 3. Twice daily proton pump inhibitor therapy and Carafate for the next 3 days. 4. We will repeat an upper endoscopy on Wednesday to dilate the gastric outlet area. 5. The patient should discontinue nonsteroidal inflammatory drugs and smoking. JOB# [id number] RADHA/NTS
[2018-03-11] MEDS ORDERED: NACL 0.9% 1000 ML 1,000 ML ONE (11:00)
[2018-03-11] MEDS: CARAFATE PO SCH ×3 (11:21→21:35)
[2018-03-11] MEDS: MORPHINE IV PRN ×2 (11:21→17:57)
[2018-03-11] MEDS: SODIUM CHLORIDE FLUSH SYRINGE 10 ML IV SCH ×2 (11:21→21:41)
[2018-03-11 11:45] LABS: Hematocrit 27.3 % (30.3-42.9)
[2018-03-11 13:50] LABS: Hematocrit 28.4 % (30.3-42.9); Hemoglobin 8.1 gm/dl (10.1-14.3)
[2018-03-11] MEDS: Centrum Liq PO SCH (14:06)
--- NOTE | 2018-03-11 16:57 | Progress Note ---
Assessment and Plan Assessment and plan: 70-year-old man a history of gastric ulcer times emergency room complaining of epigastric pain that lasts for a while, sharp, intensity 7/10, nonradiating, cannot identify definite relieving factors. Patient states that she has been nauseous and vomiting over the last 4 days, however in the last 2 days she has coffee-ground emesis. She takes 24-30 ibuprofen a day for back pain, times several months. Patient took Zantac, Tums, Pepto-Bismol without any significant improvement Upper GI bleed secondary to gastric ulcer Sepsis Urinary tract infection Hypertension Plan Supportive care Continue protoniX Drip, IV fluid Check serial hemoglobin start IV Zosyn, follow cultures\ S/P EGD 1. Deformed lumen, with evidence of prior surgery in antrum 2. Large 2cm cratered ulcer in pylorus/duodenal bulb area -Distal lumen could be visualized, but endoscope (8mm) could not pass through strictured lumen in that area -Moderate amount (500ml) of fluid in stomach, consistent with partial gastric outlet obstruction 3. Moderate antral gastritis (cold bx) 4. LA Grade B erosive esophagitis (Recs: 1. If patient bleeds severely, ulcer will not be able to be treated endoscopically/will require Interventional Rads (or surgery). 2. NPO except sips of clears. 3. BID PPI and carafate x 3 days. 4. Repeat EGD on Wednesday to dilate gastric outlet area. 5. Patient should discontinue NSAIDs and smoking.) IV morphine, DVT prophylaxis Significant red cell and urine secondary to menstrual flow IV hydralazine as needed for blood pressure control History Interval history: Patient seen and examined and in no acute distress. she denies any further bleeding. Hospitalist Physical - Physical exam Narrative exam: General Apperance: NAD breathing comfortable HEENT: Normocephalic, atraumatic. Pupils equally round and reactive to light, EOMI, no sclericterus or JVD or thyromegaly or nodule. , no carotid bruit, mucous membranes moist, no exudate or erythema Heart: S1-S2, regular is rhythm Lungs: Clear to auscultation bilaterally, breathing comfortable Abdomen: Positive bowel sounds, soft, nontender, nondistended, no organomegaly Extremities: No edema cyanosis clubbing Skin: no rash, nodule, warm and dry Neuro: cranial nerves 2-12 intact, speech is fluent, motor/sensory intact - Constitutional Vitals: Temp Pulse Resp BP Pulse Ox 97.7 F 90 13 177/104 100 03/11/18 09:18 03/11/18 09:47 03/11/18 09:47 03/11/18 09:47 03/11/18 09:47 Results - Labs CBC & Chem 7: 03/11/18 13:25 03/10/18 22:34 Labs: Laboratory Last Values WBC 17.7 K/mm3 (4.5-11.0) H 03/11/18 07:43 RBC 4.53 M/mm3 (3.65-5.03) 03/11/18 07:43 Hgb 8.1 gm/dl (10.1-14.3) L 03/11/18 13:25 Hct 28.4 % (30.3-42.9) L 03/11/18 13:25 MCV 62 fl (79-97) L 03/11/18 07:43 MCH 19 pg (28-32) L 03/11/18 07:43 MCHC 30 % (30-34) 03/11/18 07:43 RDW 19.9 % (13.2-15.2) H 03/11/18 07:43 Plt Count 422 K/mm3 (140-440) 03/11/18 07:43 Lymph % (Auto) 6.2 % (13.4-35.0) L 03/11/18 07:43 [place] % (Auto) 5.6 % (0.0-7.3) 03/11/18 07:43 Eos % (Auto) 0.3 % (0.0-4.3) 03/11/18 07:43 Baso % (Auto) 0.4 % (0.0-1.8) 03/11/18 07:43 Lymph # 1.1 K/mm3 (1.2-5.4) L 03/11/18 07:43 [place] # 1.0 K/mm3 (0.0-0.8) H 03/11/18 07:43 Eos # 0.0 K/mm3 (0.0-0.4) 03/11/18 07:43 Baso # 0.1 K/mm3 (0.0-0.1) 03/11/18 07:43 Add Manual Diff Complete 03/10/18 22:34 Total Counted 100 03/10/18 22:34 Seg Neutrophils % 87.5 % (40.0-70.0) H 03/11/18 07:43 Seg Neuts % (Manual) 80.0 % (40.0-70.0) H 03/10/18 22:34 Band Neutrophils % 5.0 % 03/10/18 22:34 Lymphocytes % (Manual) 5.0 % (13.4-35.0) L 03/10/18 22:34 Reactive Lymphs % (Man) 0 % 03/10/18 22:34 Monocytes % (Manual) 10.0 % (0.0-7.3) H 03/10/18 22:34 Eosinophils % (Manual) 0 % (0.0-4.3) 03/10/18 22:34 Basophils % (Manual) 0 % (0.0-1.8) 03/10/18 22:34 Metamyelocytes % 0 % 03/10/18 22:34 Myelocytes % 0 % 03/10/18 22:34 Promyelocytes % 0 % 03/10/18 22:34 Blast Cells % 0 % 03/10/18 22:34 Nucleated RBC % Not Reportable 03/10/18 22:34 Seg Neutrophils # 15.5 K/mm3 (1.8-7.7) H 03/11/18 07:43 Seg Neutrophils # Man 17.2 K/mm3 (1.8-7.7) H 03/10/18 22:34 Band Neutrophils # 1.1 K/mm3 03/10/18 22:34 Lymphocytes # (Manual) 1.1 K/mm3 (1.2-5.4) L 03/10/18 22:34 Abs React Lymphs (Man) 0.0 K/mm3 03/10/18 22:34 Monocytes # (Manual) 2.2 K/mm3 (0.0-0.8) H 03/10/18 22:34 Eosinophils # (Manual) 0.0 K/mm3 (0.0-0.4) 03/10/18 22:34 Basophils # (Manual) 0.0 K/mm3 (0.0-0.1) 03/10/18 22:34 Metamyelocytes # 0.0 K/mm3 03/10/18 22:34 Myelocytes # 0.0 K/mm3 03/10/18 22:34 Promyelocytes # 0.0 K/mm3 03/10/18 22:34 Blast Cells # 0.0 K/mm3 03/10/18 22:34 WBC Morphology Not Reportable 03/10/18 22:34 Hypersegmented Neuts Not Reportable 03/10/18 22:34 Hyposegmented Neuts Not Reportable 03/10/18 22:34 Hypogranular Neuts Not Reportable 03/10/18 22:34 Smudge Cells Not Reportable 03/10/18 22:34 Toxic Granulation Not Reportable 03/10/18 22:34 Toxic Vacuolation Not Reportable 03/10/18 22:34 Dohle Bodies Not Reportable 03/10/18 22:34 Pelger-Huet Anomaly Not Reportable 03/10/18 22:34 Chase Rods Not Reportable 03/10/18 22:34 Platelet Estimate Appears increased 03/10/18 22:34 Clumped Platelets Not Reportable 03/10/18 22:34 Plt Clumps, EDTA Not Reportable 03/10/18 22:34 Large Platelets Not Reportable 03/10/18 22:34 Giant Platelets Not Reportable 03/10/18 22:34 Platelet Satelliting Not Reportable 03/10/18 22:34 Plt Morphology Comment Not Reportable 03/10/18 22:34 RBC Morphology Not Reportable 03/10/18 22:34 Dimorphic RBCs Not Reportable 03/10/18 22:34 Polychromasia Not Reportable 03/10/18 22:34 Hypochromasia 2+ 03/10/18 22:34 Poikilocytosis Not Reportable 03/10/18 22:34 Anisocytosis 1+ 03/10/18 22:34 Microcytosis 2+ 03/10/18 22:34 Macrocytosis Not Reportable 03/10/18 22:34 Spherocytes Not Reportable 03/10/18 22:34 Pappenheimer Bodies Not Reportable 03/10/18 22:34 Sickle Cells Not Reportable 03/10/18 22:34 Target Cells Not Reportable 03/10/18 22:34 Tear Drop Cells Not Reportable 03/10/18 22:34 Ovalocytes Not Reportable 03/10/18 22:34 Helmet Cells Not Reportable 03/10/18 22:34 [place] Bodies Not Reportable 03/10/18 22:34 [place] Rings Not Reportable 03/10/18 22:34 Stephanie Cells Not Reportable 03/10/18 22:34 Bite Cells Not Reportable 03/10/18 22:34 Crenated Cell Not Reportable 03/10/18 22:34 Elliptocytes Not Reportable 03/10/18 22:34 Acanthocytes (Spur) Not Reportable 03/10/18 22:34 Rouleaux Not Reportable 03/10/18 22:34 Hemoglobin C Crystals Not Reportable 03/10/18 22:34 Schistocytes Not Reportable 03/10/18 22:34 Malaria parasites Not Reportable 03/10/18 22:34 Gabe Bodies Not Reportable 03/10/18 22:34 Hem Pathologist Commnt No 03/10/18 22:34 PT 14.8 Sec. (12.2-14.9) 03/11/18 06:12 INR 1.12 (0.87-1.13) 03/11/18 06:12 APTT 27.7 Sec. (24.2-36.6) 03/11/18 06:12 Sodium 139 mmol/L (137-145) 03/10/18 22:34 Potassium 3.3 mmol/L (3.6-5.0) L 03/10/18 22:34 Chloride 89.4 mmol/L (98-107) L 03/10/18 22:34 Carbon Dioxide 33 mmol/L (22-30) H 03/10/18 22:34 Anion Gap 20 mmol/L 03/10/18 22:34 BUN 20 mg/dL (7-17) H 03/10/18 22:34 Creatinine 1.0 mg/dL (0.7-1.2) 03/10/18 22:34 Estimated GFR 59 ml/min 03/10/18 22:34 BUN/Creatinine Ratio 20 % 03/10/18 22:34 Glucose 121 mg/dL (65-100) H 03/10/18 22:34 Lactic Acid 1.70 mmol/L (0.7-2.0) 03/10/18 23:56 Calcium 11.2 mg/dL (8.4-10.2) H 03/10/18 22:34 Total Bilirubin 0.30 mg/dL (0.1-1.2) 03/10/18 22:34 Direct Bilirubin < 0.2 mg/dL (0-0.2) 03/10/18 22:34 Indirect Bilirubin 0.1 mg/dL 03/10/18 22:34 AST 12 units/L (5-40) 03/10/18 22:34 ALT 8 units/L (7-56) 03/10/18 22:34 Alkaline Phosphatase 87 units/L (35-129) 03/10/18 22:34 Total Protein 7.7 g/dL (6.3-8.2) 03/10/18 22:34 Albumin 4.6 g/dL (3.9-5) 03/10/18 22:34 Albumin/Globulin Ratio 1.5 % 03/10/18 22:34 Lipase 30 units/L (13-60) 03/10/18 22:34 HCG, Qual Negative (Negative) 03/10/18 22:34 Urine Color Red (Yellow) 03/10/18 02:37 Urine Turbidity Cloudy (Clear) 03/10/18 02:37 Urine pH 7.0 (5.0-7.0) 03/10/18 02:37 Ur Specific [place] 1.016 (1.003-1.030) 03/10/18 02:37 Urine Protein 100 mg/dl mg/dL (Negative) 03/10/18 02:37 Urine Glucose (UA) 50 mg/dL (Negative) 03/10/18 02:37 Urine Ketones Neg mg/dL (Negative) 03/10/18 02:37 Urine Blood Lg (Negative) 03/10/18 02:37 Urine Nitrite Neg (Negative) 03/10/18 02:37 Urine Bilirubin Neg (Negative) 03/10/18 02:37 Urine Urobilinogen < 2.0 mg/dL (<2.0) 03/10/18 02:37 Ur Leukocyte Esterase Sm (Negative) 03/10/18 02:37 Urine WBC (Auto) 69.0 /HPF (0.0-6.0) H 03/10/18 02:37 Urine RBC (Auto) > 182.0 /HPF (0.0-6.0) 03/10/18 02:37 U Epithel Cells (Auto) 13.0 /HPF (0-13.0) 03/10/18 02:37 Hyaline Casts 149 /LPF 03/10/18 02:37 Urine Mucus 3+ /HPF 03/10/18 02:37 Blood Type A POSITIVE 03/11/18 01:22 Antibody Screen Negative 03/11/18 01:22
[2018-03-11] MEDS: PROTONIX IV SCH (21:35)
[2018-03-12] MEDS: ZOSYN/NS 4.5GM/100ML 4.5 GM/100 ML VIAL IV SCH ×3 (02:20→10:52)
[2018-03-12 06:11] LABS: Basophils % (Auto) 0.4 % (0.0-1.8); Eosinophils # (Auto) 0.1 K/mm3 (0.0-0.4); Eosinophils % (Auto) 1.3 % (0.0-4.3); Hematocrit 23.3 % (30.3-42.9); Hemoglobin 6.9 gm/dl (10.1-14.3); Lymphocytes # (Auto) 1.6 K/mm3 (1.2-5.4); Lymphocytes % (Auto) 15.4 % (13.4-35.0); Mean Corpuscular HGB Conc 30 % (30-34); Monocytes # (Auto) 0.6 K/mm3 (0.0-0.8); Monocytes % (Auto) 6.1 % (0.0-7.3); Platelet Count 324 K/mm3 (140-440); Red Blood Count 3.72 M/mm3 (3.65-5.03)
[2018-03-12 06:29] LABS: Mean Corpuscular Volume 63 fl (79-97); Red Cell Distribution Width 20.1 % (13.2-15.2)
[2018-03-12 06:35] LABS: Calcium 10.3 mg/dL (8.4-10.2)
[2018-03-12] MEDS: MORPHINE IV PRN (08:29)
[2018-03-12] MEDS: CARAFATE PO SCH ×2 (08:32→11:06)
[2018-03-12] MEDS ORDERED: NACL 0.9% 500 ML 500 ML IV ONE (09:14)
[2018-03-12] MEDS: Centrum Liq PO SCH (10:51)
[2018-03-12] MEDS: PROTONIX IV SCH (10:51)
[2018-03-12] MEDS: SODIUM CHLORIDE FLUSH SYRINGE 10 ML IV SCH (10:52)
--- NOTE | 2018-03-12 12:56 | Progress Note ---
Assessment and Plan Assessment and plan: 70-year-old man a history of gastric ulcer times emergency room complaining of epigastric pain that lasts for a while, sharp, intensity 7/10, nonradiating, cannot identify definite relieving factors. Patient states that she has been nauseous and vomiting over the last 4 days, however in the last 2 days she has coffee-ground emesis. She takes 24-30 ibuprofen a day for back pain, times several months. Patient took Zantac, Tums, Pepto-Bismol without any significant improvement. Patient reports prior history of peptic ulcer disease with "rupture" Upper GI bleed secondary to gastric ulcer Sepsis Acute blood loss anemia Urinary tract infection Hypertension Plan Supportive care Give 2 units packed red blood cell Continue protoniX Drip, IV fluid Continue serial hemoglobin start IV Zosyn, follow cultures so far remain negative S/P EGD 1. Deformed lumen, with evidence of prior surgery in antrum 2. Large 2cm cratered ulcer in pylorus/duodenal bulb area -Distal lumen could be visualized, but endoscope (8mm) could not pass through strictured lumen in that area -Moderate amount (500ml) of fluid in stomach, consistent with partial gastric outlet obstruction 3. Moderate antral gastritis (cold bx) 4. LA Grade B erosive esophagitis (Recs: 1. If patient bleeds severely, ulcer will not be able to be treated endoscopically/will require Interventional Rads (or surgery). 2. NPO except sips of clears. 3. BID PPI and carafate x 3 days. 4. Repeat EGD on Wednesday to dilate gastric outlet area. 5. Patient should discontinue NSAIDs and smoking.) IV morphine, DVT prophylaxis Significant red cell and urine secondary to menstrual flow IV hydralazine as needed for blood pressure control Plan discussed with the patient. History Interval history: Patient seen and examined and in no acute distress. she denies any further bl eeding. She denies any new complaints MRSA spell for possible history of asthma. Medication this morning. Hospitalist Physical - Physical exam Narrative exam: General Apperance: NAD breathing comfortable . Sitting up on the bed HEENT: Normocephalic, atraumatic. Pupils equally round and reactive to light, EOMI, no sclericterus or JVD or thyromegaly or nodule. , no carotid bruit, mucous membranes moist, no exudate or erythema Heart: S1-S2, regular is rhythm Lungs: Clear to auscultation bilaterally, breathing comfortable Abdomen: Positive bowel sounds, soft, nontender, nondistended, no organomegaly Extremities: No edema cyanosis clubbing Skin: no rash, nodule, warm and dry Neuro: cranial nerves 2-12 intact, speech is fluent, motor/sensory intact - Constitutional Vitals: Temp Pulse Resp BP Pulse Ox 98.1 F 95 H 20 135/80 96 03/12/18 07:32 03/12/18 07:32 03/12/18 07:32 03/12/18 07:32 03/12/18 07:32 Results - Labs CBC & Chem 7: 03/12/18 05:06 03/12/18 05:06 Labs: Laboratory Last Values WBC 10.2 K/mm3 (4.5-11.0) 03/12/18 05:06 RBC 3.72 M/mm3 (3.65-5.03) 03/12/18 05:06 Hgb 6.9 gm/dl (10.1-14.3) L 03/12/18 05:06 Hct 23.3 % (30.3-42.9) L 03/12/18 05:06 MCV 63 fl (79-97) L 03/12/18 05:06 MCH 18 pg (28-32) L 03/12/18 05:06 MCHC 30 % (30-34) 03/12/18 05:06 RDW 20.1 % (13.2-15.2) H 03/12/18 05:06 Plt Count 324 K/mm3 (140-440) 03/12/18 05:06 Lymph % (Auto) 15.4 % (13.4-35.0) 03/12/18 05:06 [place] % (Auto) 6.1 % (0.0-7.3) 03/12/18 05:06 Eos % (Auto) 1.3 % (0.0-4.3) 03/12/18 05:06 Baso % (Auto) 0.4 % (0.0-1.8) 03/12/18 05:06 Lymph # 1.6 K/mm3 (1.2-5.4) 03/12/18 05:06 [place] # 0.6 K/mm3 (0.0-0.8) 03/12/18 05:06 Eos # 0.1 K/mm3 (0.0-0.4) 03/12/18 05:06 Baso # 0.0 K/mm3 (0.0-0.1) 03/12/18 05:06 Add Manual Diff Complete 03/10/18 22:34 Total Counted 100 03/10/18 22:34 Seg Neutrophils % 76.8 % (40.0-70.0) H 03/12/18 05:06 Seg Neuts % (Manual) 80.0 % (40.0-70.0) H 03/10/18 22:34 Band Neutrophils % 5.0 % 03/10/18 22:34 Lymphocytes % (Manual) 5.0 % (13.4-35.0) L 03/10/18 22:34 Reactive Lymphs % (Man) 0 % 03/10/18 22:34 Monocytes % (Manual) 10.0 % (0.0-7.3) H 03/10/18 22:34 Eosinophils % (Manual) 0 % (0.0-4.3) 03/10/18 22:34 Basophils % (Manual) 0 % (0.0-1.8) 03/10/18 22:34 Metamyelocytes % 0 % 03/10/18 22:34 Myelocytes % 0 % 03/10/18 22:34 Promyelocytes % 0 % 03/10/18 22:34 Blast Cells % 0 % 03/10/18 22:34 Nucleated RBC % Not Reportable 03/10/18 22:34 Seg Neutrophils # 7.8 K/mm3 (1.8-7.7) H 03/12/18 05:06 Seg Neutrophils # Man 17.2 K/mm3 (1.8-7.7) H 03/10/18 22:34 Band Neutrophils # 1.1 K/mm3 03/10/18 22:34 Lymphocytes # (Manual) 1.1 K/mm3 (1.2-5.4) L 03/10/18 22:34 Abs React Lymphs (Man) 0.0 K/mm3 03/10/18 22:34 Monocytes # (Manual) 2.2 K/mm3 (0.0-0.8) H 03/10/18 22:34 Eosinophils # (Manual) 0.0 K/mm3 (0.0-0.4) 03/10/18 22:34 Basophils # (Manual) 0.0 K/mm3 (0.0-0.1) 03/10/18 22:34 Metamyelocytes # 0.0 K/mm3 03/10/18 22:34 Myelocytes # 0.0 K/mm3 03/10/18 22:34 Promyelocytes # 0.0 K/mm3 03/10/18 22:34 Blast Cells # 0.0 K/mm3 03/10/18 22:34 WBC Morphology Not Reportable 03/10/18 22:34 Hypersegmented Neuts Not Reportable 03/10/18 22:34 Hyposegmented Neuts Not Reportable 03/10/18 22:34 Hypogranular Neuts Not Reportable 03/10/18 22:34 Smudge Cells Not Reportable 03/10/18 22:34 Toxic Granulation Not Reportable 03/10/18 22:34 Toxic Vacuolation Not Reportable 03/10/18 22:34 Dohle Bodies Not Reportable 03/10/18 22:34 Pelger-Huet Anomaly Not Reportable 03/10/18 22:34 Chase Rods Not Reportable 03/10/18 22:34 Platelet Estimate Appears increased 03/10/18 22:34 Clumped Platelets Not Reportable 03/10/18 22:34 Plt Clumps, EDTA Not Reportable 03/10/18 22:34 Large Platelets Not Reportable 03/10/18 22:34 Giant Platelets Not Reportable 03/10/18 22:34 Platelet Satelliting Not Reportable 03/10/18 22:34 Plt Morphology Comment Not Reportable 03/10/18 22:34 RBC Morphology Not Reportable 03/10/18 22:34 Dimorphic RBCs Not Reportable 03/10/18 22:34 Polychromasia Not Reportable 03/10/18 22:34 Hypochromasia 2+ 03/10/18 22:34 Poikilocytosis Not Reportable 03/10/18 22:34 Anisocytosis 1+ 03/10/18 22:34 Microcytosis 2+ 03/10/18 22:34 Macrocytosis Not Reportable 03/10/18 22:34 Spherocytes Not Reportable 03/10/18 22:34 Pappenheimer Bodies Not Reportable 03/10/18 22:34 Sickle Cells Not Reportable 03/10/18 22:34 Target Cells Not Reportable 03/10/18 22:34 Tear Drop Cells Not Reportable 03/10/18 22:34 Ovalocytes Not Reportable 03/10/18 22:34 Helmet Cells Not Reportable 03/10/18 22:34 [place] Bodies Not Reportable 03/10/18 22:34 [place] Rings Not Reportable 03/10/18 22:34 Stephanie Cells Not Reportable 03/10/18 22:34 Bite Cells Not Reportable 03/10/18 22:34 Crenated Cell Not Reportable 03/10/18 22:34 Elliptocytes Not Reportable 03/10/18 22:34 Acanthocytes (Spur) Not Reportable 03/10/18 22:34 Rouleaux Not Reportable 03/10/18 22:34 Hemoglobin C Crystals Not Reportable 03/10/18 22:34 Schistocytes Not Reportable 03/10/18 22:34 Malaria parasites Not Reportable 03/10/18 22:34 Gabe Bodies Not Reportable 03/10/18 22:34 Hem Pathologist Commnt No 03/10/18 22:34 PT 14.8 Sec. (12.2-14.9) 03/11/18 06:12 INR 1.12 (0.87-1.13) 03/11/18 06:12 APTT 27.7 Sec. (24.2-36.6) 03/11/18 06:12 Sodium 139 mmol/L (137-145) 03/12/18 05:06 Potassium 4.7 mmol/L (3.6-5.0) D 03/12/18 05:06 Chloride 102.4 mmol/L (98-107) 03/12/18 05:06 Carbon Dioxide 21 mmol/L (22-30) L D 03/12/18 05:06 Anion Gap 20 mmol/L 03/12/18 05:06 BUN 17 mg/dL (7-17) 03/12/18 05:06 Creatinine 1.0 mg/dL (0.7-1.2) 03/12/18 05:06 Estimated GFR 59 ml/min 03/12/18 05:06 BUN/Creatinine Ratio 17 % 03/12/18 05:06 Glucose 190 mg/dL (65-100) H 03/12/18 05:06 Lactic Acid 1.70 mmol/L (0.7-2.0) 03/10/18 23:56 Calcium 10.3 mg/dL (8.4-10.2) H 03/12/18 05:06 Total Bilirubin 0.30 mg/dL (0.1-1.2) 03/10/18 22:34 Direct Bilirubin < 0.2 mg/dL (0-0.2) 03/10/18 22:34 Indirect Bilirubin 0.1 mg/dL 03/10/18 22:34 AST 12 units/L (5-40) 03/10/18 22:34 ALT 8 units/L (7-56) 03/10/18 22:34 Alkaline Phosphatase 87 units/L (35-129) 03/10/18 22:34 Total Protein 7.7 g/dL (6.3-8.2) 03/10/18 22:34 Albumin 4.6 g/dL (3.9-5) 03/10/18 22:34 Albumin/Globulin Ratio 1.5 % 03/10/18 22:34 Lipase 30 units/L (13-60) 03/10/18 22:34 HCG, Qual Negative (Negative) 03/10/18 22:34 Urine Color Red (Yellow) 03/10/18 02:37 Urine Turbidity Cloudy (Clear) 03/10/18 02:37 Urine pH 7.0 (5.0-7.0) 03/10/18 02:37 Ur Specific [place] 1.016 (1.003-1.030) 03/10/18 02:37 Urine Protein 100 mg/dl mg/dL (Negative) 03/10/18 02:37 Urine Glucose (UA) 50 mg/dL (Negative) 03/10/18 02:37 Urine Ketones Neg mg/dL (Negative) 03/10/18 02:37 Urine Blood Lg (Negative) 03/10/18 02:37 Urine Nitrite Neg (Negative) 03/10/18 02:37 Urine Bilirubin Neg (Negative) 03/10/18 02:37 Urine Urobilinogen < 2.0 mg/dL (<2.0) 03/10/18 02:37 Ur Leukocyte Esterase Sm (Negative) 03/10/18 02:37 Urine WBC (Auto) 69.0 /HPF (0.0-6.0) H 03/10/18 02:37 Urine RBC (Auto) > 182.0 /HPF (0.0-6.0) 03/10/18 02:37 U Epithel Cells (Auto) 13.0 /HPF (0-13.0) 03/10/18 02:37 Hyaline Casts 149 /LPF 03/10/18 02:37 Urine Mucus 3+ /HPF 03/10/18 02:37 Blood Type A POSITIVE 03/11/18 01:22 Antibody Screen Negative 03/11/18 01:22 Crossmatch See Detail 03/11/18 01:22
[2018-03-12 13:15] VITALS: BP 136/85
== END 2018-03-12 14:30 | disposition left against medical advice (07) | DRG 853 ==
LOC: ED 22:03 → 4A 03-11 05:44
PROVIDERS: ADMIT Internal Medicine; ATTEND Internal Medicine
PROC: 0D968ZZ Drainage of Stomach, Via Natural or Artificial Opening Endoscopic (ICD-10-PCS; principal; 2018-03-11)
PROC: 0DB68ZX Excision of Stomach, Via Natural or Artificial Opening Endoscopic, Diagnostic (ICD-10-PCS; 2018-03-11)
DX: A41.9 Sepsis, unspecified organism (principal); K25.4 Chronic or unspecified gastric ulcer with hemorrhage; N30.01 Acute cystitis with hematuria; K31.1 Adult hypertrophic pyloric stenosis; K56.609 Unspecified intestinal obstruction, unspecified as to partial versus complete obstruction; F17.210 Nicotine dependence, cigarettes, uncomplicated; I10 Essential (primary) hypertension; D64.9 Anemia, unspecified; K31.84 Gastroparesis; K29.70 Gastritis, unspecified, without bleeding; K20.9 Esophagitis, unspecified; Z82.49 Family history of ischemic heart disease and other diseases of the circulatory system; Z87.11 Personal history of peptic ulcer disease; Z53.21 Procedure and treatment not carried out due to patient leaving prior to being seen by health care provider
CPT/HCPCS: 36415; 71045; 74177; 80048; 80076; 81001; 82140; 83690; 84703; 85007; 85014; 85018; 85025; 85610; 85730; 86850; 86900; 86901; 86920; 87040; 87086; 88305; 88342; 93005; 93010; 96361; 96365; 96375; 96376; 99292; G0378; C9113; J1170; J2270; J2405; J2543; J2704; J7030; J7040; Q9967